=== PATIENT | female | born 1955 | race Caucasian/White ===

== ENCOUNTER 2020-03-11 11:07 | Inpatient (IN) | payer OTHER ==
[~2020-03-11] VITALS: Ht 154.9 cm; Wt 55.8 kg
[2020-03-11 16:00] VITALS: BP 117/57
[2020-03-11] MEDS ORDERED: ACETAMINOPHEN 325 MG TABLET PO PRN (17:00)
[2020-03-11] MEDS ORDERED: NICOTINE 14 MG/24 HOUR PATCH TD ONE (18:00)
[2020-03-11] MEDS: ATORVASTATIN CALCIUM 40 MG TABLET PO SCH (20:51)
[2020-03-11] MEDS: MELATONIN 3 MG TABLET PO PRN (20:52)
[2020-03-11] MEDS: DOCUSATE SODIUM 100 MG CAPSULE PO SCH (20:52)
[2020-03-11] MEDS: SENNA 187 MG TABLET PO SCH (20:52)
[2020-03-11] MEDS ORDERED: INFLUENZA VIRUS VACCINE QVS 2020-21 (6MO+)/PF 60 MCG/0.5 ML SYRINGE IM ONE (21:15)
[2020-03-11] MEDS ORDERED: PNEUMOCOCCAL VACCINE POLYVALENT 0.5 ML VIAL [PPSV23] IM ONE (21:15)
[2020-03-12 00:36] VITALS: BP 106/63
[2020-03-12 06:36] LABS: BASOPHILS % (AUTO) 0.4 % (0.0-2.0); EOSINOPHILS % (AUTO) 0.1 % (1.0-6.0); HEMATOCRIT 33.4 % (36-46); HEMOGLOBIN 11.3 g/dL (12.0-16.0); LYMPHOCYTES # (AUTO) 2.7 K/uL (1.0-4.8); LYMPHOCYTES % (AUTO) 25.6 % (22.0-44.0); MEAN CORPUSCULAR HEMOGLOBIN 30.6 pg (26.0-34.0); MEAN CORPUSCULAR HGB CONC 33.9 G/dL (31.0-37.0); MEAN CORPUSCULAR VOLUME 90 fL (80-100); MONOCYTES # (AUTO) 0.9 K/uL (0.1-1.0); MONOCYTES % (AUTO) 8.7 % (2.0-9.0); NEUTROPHILS # (AUTO) 6.8 K/uL (1.8-7.7); NEUTROPHILS % (AUTO) 65.2 % (40.0-70.0); PLATELET COUNT (AUTO) 452 K/uL (150-450); RED BLOOD CELL COUNT(AUTO) 3.69 MIL/uL (4.00-5.20); RED CELL DISTRIBUTION WIDTH 13.4 % (11.5-14.5)
[2020-03-12 06:52] LABS: ALANINE AMINOTRANSFERASE 35 U/L (12-78); ALBUMIN 2.6 g/dL (3.4-5.0); ALKALINE PHOSPHATASE 76 U/L (46-116); ANION GAP 9 mmol/L (8-16); ASPARTATE AMINOTRANSFERASE 28 U/L (15-37); BILIRUBIN,TOTAL 0.3 mg/dL (0.1-1.0); CALCIUM, TOTAL 8.8 mg/dL (8.8-10.5); CARBON DIOXIDE 26 mmol/L (22-29); CHLORIDE 106 mmol/L (98-107); CREATININE 0.62 mg/dL (0.60-1.30); GLOMERULAR FILTR. RATE CALC > 60 mL/min (>60); GLUCOSE,RANDOM 128 mg/dL (70-110); POTASSIUM 3.9 mmol/L (3.5-5.1); SODIUM SERUM 141 mmol/L (136-145); TOTAL PROTEIN, SERUM 6.6 g/dL (6.4-8.2); UREA NITROGEN, BLOOD 17 mg/dL (7-18)
[2020-03-12 08:00] VITALS: BP 125/65
[2020-03-12] MEDS: CLOPIDOGREL BISULFATE 75 MG TABLET PO SCH (08:06)
[2020-03-12] MEDS: DOCUSATE SODIUM 100 MG CAPSULE PO SCH ×2 (08:06→20:51)
[2020-03-12] MEDS: NICOTINE 14 MG/24 HOUR PATCH TD SCH (08:06)
[2020-03-12] MEDS: ASPIRIN 325 MG EC TABLET PO SCH (08:06)
[2020-03-12] MEDS: ENOXAPARIN SODIUM 40 MG/0.4 ML PF SYRINGE SQ SCH (08:07)
[2020-03-12 17:08] VITALS: BP 113/64
[2020-03-12] MEDS: SENNA 187 MG TABLET PO SCH (20:51)
[2020-03-12] MEDS: MELATONIN 3 MG TABLET PO PRN (20:51)
[2020-03-12] MEDS: ATORVASTATIN CALCIUM 40 MG TABLET PO SCH (20:51)
[2020-03-13 01:22] VITALS: BP 119/63
[2020-03-13 10:00] VITALS: BP 105/52
[2020-03-13] MEDS: ENOXAPARIN SODIUM 40 MG/0.4 ML PF SYRINGE SQ SCH (10:10)
[2020-03-13] MEDS: NICOTINE 14 MG/24 HOUR PATCH TD SCH (10:11)
[2020-03-13] MEDS: DOCUSATE SODIUM 100 MG CAPSULE PO SCH ×2 (10:11→20:42)
[2020-03-13] MEDS: ASPIRIN 325 MG EC TABLET PO SCH (10:11)
[2020-03-13] MEDS: CLOPIDOGREL BISULFATE 75 MG TABLET PO SCH (10:11)
[2020-03-13] MEDS: FLUoxetine HCL 10 MG CAPSULE PO SCH (13:12)
[2020-03-13 16:00] VITALS: BP 122/55
[2020-03-13] MEDS: ATORVASTATIN CALCIUM 40 MG TABLET PO SCH (20:41)
[2020-03-13] MEDS: MELATONIN 3 MG TABLET PO PRN (20:41)
[2020-03-13] MEDS: SENNA 187 MG TABLET PO SCH (20:42)
[2020-03-14 01:01] VITALS: BP 123/57
[2020-03-14 07:00] VITALS: BP 119/54
[2020-03-14] MEDS: FLUoxetine HCL 10 MG CAPSULE PO SCH (08:12)
[2020-03-14] MEDS: ASPIRIN 325 MG EC TABLET PO SCH (08:12)
[2020-03-14] MEDS: CLOPIDOGREL BISULFATE 75 MG TABLET PO SCH (08:12)
[2020-03-14] MEDS: ENOXAPARIN SODIUM 40 MG/0.4 ML PF SYRINGE SQ SCH (08:12)
[2020-03-14] MEDS: NICOTINE 14 MG/24 HOUR PATCH TD SCH (08:13)
[2020-03-14] MEDS: DOCUSATE SODIUM 100 MG CAPSULE PO SCH ×2 (08:22→20:35)
[2020-03-14 15:00] VITALS: BP 156/92
[2020-03-14 16:40] VITALS: BP 123/64
[2020-03-14] MEDS: SENNA 187 MG TABLET PO SCH (20:35)
[2020-03-14] MEDS: ATORVASTATIN CALCIUM 40 MG TABLET PO SCH (20:35)
[2020-03-14] MEDS: MELATONIN 3 MG TABLET PO PRN (20:41)
[2020-03-15 00:59] VITALS: BP 120/61
[2020-03-15 07:50] VITALS: BP 111/58
[2020-03-15] MEDS: NICOTINE 14 MG/24 HOUR PATCH TD SCH (07:50)
[2020-03-15] MEDS: CLOPIDOGREL BISULFATE 75 MG TABLET PO SCH (07:51)
[2020-03-15] MEDS: ENOXAPARIN SODIUM 40 MG/0.4 ML PF SYRINGE SQ SCH (07:51)
[2020-03-15] MEDS: FLUoxetine HCL 10 MG CAPSULE PO SCH (07:51)
[2020-03-15] MEDS: ASPIRIN 325 MG EC TABLET PO SCH (07:51)
[2020-03-15] MEDS: DOCUSATE SODIUM 100 MG CAPSULE PO SCH ×2 (07:51→20:07)
[2020-03-15 16:22] VITALS: BP 146/77
[2020-03-15] MEDS: SENNA 187 MG TABLET PO SCH (20:07)
[2020-03-15] MEDS: MELATONIN 3 MG TABLET PO PRN (20:07)
[2020-03-15] MEDS: ATORVASTATIN CALCIUM 40 MG TABLET PO SCH (20:07)
[2020-03-16] VITALS: BP 109/42
[2020-03-16 07:40] VITALS: BP 128/64
[2020-03-16] MEDS: FLUoxetine HCL 10 MG CAPSULE PO SCH (07:47)
[2020-03-16] MEDS: CLOPIDOGREL BISULFATE 75 MG TABLET PO SCH (07:47)
[2020-03-16] MEDS: NICOTINE 14 MG/24 HOUR PATCH TD SCH (07:47)
[2020-03-16] MEDS: ASPIRIN 325 MG EC TABLET PO SCH (07:47)
[2020-03-16] MEDS: DOCUSATE SODIUM 100 MG CAPSULE PO SCH ×2 (07:48→20:21)
[2020-03-16 13:37] LABS: APPEARANCE,URINE CLEAR (CLEAR); BILIRUBIN,URINE NEGATIVE (NEGATIVE); GLUCOSE, URINE (UA) NEGATIVE (NEGATIVE); KETONES,URINE NEGATIVE (NEGATIVE); LEUKOCYTE ESTERASE ,URINE NEGATIVE (NEGATIVE); NITRATE,URINE NEGATIVE (NEGATIVE); OCCULT BLOOD,URINE NEGATIVE (NEGATIVE); PH,URINE 5.5 (5.0-8.0); PROTEIN,URINE NEGATIVE (NEGATIVE); UROBILINOGEN,URINE 0.2 mg/dL (<=1.0)
[2020-03-16] MEDS ORDERED: Ardosons PO (13:37)
[2020-03-16] MEDS: GABAPENTIN 100 MG CAPSULE PO SCH ×2 (15:51→20:21)
[2020-03-16 16:41] VITALS: BP 128/78
[2020-03-16] MEDS: ATORVASTATIN CALCIUM 40 MG TABLET PO SCH (20:20)
[2020-03-16] MEDS: SENNA 187 MG TABLET PO SCH (20:21)
[2020-03-16] MEDS: MELATONIN 3 MG TABLET PO PRN (20:21)
[2020-03-16] MEDS ORDERED: TAMSULOSIN HCL 0.4 MG CAPSULE PO SCH (21:00)
[2020-03-17 03:00] VITALS: BP 131/54
[2020-03-17] MEDS: DOCUSATE SODIUM 283 MG/5 ML MINI-ENEMA PR PRN (04:59)
[2020-03-17 07:14] LABS: BASOPHILS % (AUTO) 0.7 % (0.0-2.0); EOSINOPHILS % (AUTO) 0.3 % (1.0-6.0); HEMATOCRIT 30.4 % (36-46); HEMOGLOBIN 10.2 g/dL (12.0-16.0); LYMPHOCYTES # (AUTO) 2.5 K/uL (1.0-4.8); LYMPHOCYTES % (AUTO) 29.2 % (22.0-44.0); MEAN CORPUSCULAR HEMOGLOBIN 30.4 pg (26.0-34.0); MEAN CORPUSCULAR HGB CONC 33.6 G/dL (31.0-37.0); MEAN CORPUSCULAR VOLUME 90 fL (80-100); MONOCYTES # (AUTO) 0.9 K/uL (0.1-1.0); MONOCYTES % (AUTO) 10.3 % (2.0-9.0); NEUTROPHILS # (AUTO) 5.1 K/uL (1.8-7.7); NEUTROPHILS % (AUTO) 59.5 % (40.0-70.0); PLATELET COUNT (AUTO) 504 K/uL (150-450); RED BLOOD CELL COUNT(AUTO) 3.36 MIL/uL (4.00-5.20); RED CELL DISTRIBUTION WIDTH 13.8 % (11.5-14.5)
[2020-03-17 07:38] LABS: ALANINE AMINOTRANSFERASE 44 U/L (12-78); ALBUMIN 2.6 g/dL (3.4-5.0); ALKALINE PHOSPHATASE 80 U/L (46-116); ANION GAP 9 mmol/L (8-16); ASPARTATE AMINOTRANSFERASE 35 U/L (15-37); BILIRUBIN,TOTAL 0.3 mg/dL (0.1-1.0); CALCIUM, TOTAL 8.8 mg/dL (8.8-10.5); CARBON DIOXIDE 27 mmol/L (22-29); CHLORIDE 106 mmol/L (98-107); CREATININE 0.49 mg/dL (0.60-1.30); GLOMERULAR FILTR. RATE CALC > 60 mL/min (>60); GLUCOSE,RANDOM 127 mg/dL (70-110); POTASSIUM 3.5 mmol/L (3.5-5.1); SODIUM SERUM 142 mmol/L (136-145); TOTAL PROTEIN, SERUM 5.9 g/dL (6.4-8.2); UREA NITROGEN, BLOOD 11 mg/dL (7-18)
[2020-03-17 07:46] VITALS: BP 114/59
[2020-03-17] MEDS: GABAPENTIN 100 MG CAPSULE PO SCH ×3 (08:17→20:45)
[2020-03-17] MEDS: FLUoxetine HCL 10 MG CAPSULE PO SCH (08:17)
[2020-03-17] MEDS: CLOPIDOGREL BISULFATE 75 MG TABLET PO SCH (08:17)
[2020-03-17] MEDS: ASPIRIN 325 MG EC TABLET PO SCH (08:18)
[2020-03-17] MEDS: NICOTINE 14 MG/24 HOUR PATCH TD SCH (08:18)
[2020-03-17] MEDS: DOCUSATE SODIUM 100 MG CAPSULE PO SCH ×2 (08:18→20:45)
[2020-03-17] MEDS: TAMSULOSIN HCL 0.4 MG CAPSULE PO SCH ×2 (11:41→20:45)
[2020-03-17] MEDS: ACETAMINOPHEN 325 MG TABLET PO SCH (11:42)
[2020-03-17 16:19] VITALS: BP 107/65
[2020-03-17] MEDS: SENNA 187 MG TABLET PO SCH (20:45)
[2020-03-17] MEDS: ATORVASTATIN CALCIUM 40 MG TABLET PO SCH (20:45)
[2020-03-17] MEDS: MELATONIN 3 MG TABLET PO PRN (23:06)
[2020-03-17 23:15] VITALS: BP 121/58
[2020-03-18] MEDS: DOCUSATE SODIUM 283 MG/5 ML MINI-ENEMA PR PRN (05:32)
[2020-03-18 08:00] VITALS: BP 110/65
[2020-03-18] MEDS: ASPIRIN 325 MG EC TABLET PO SCH (08:07)
[2020-03-18] MEDS: GABAPENTIN 100 MG CAPSULE PO SCH ×3 (08:07→20:11)
[2020-03-18] MEDS: CLOPIDOGREL BISULFATE 75 MG TABLET PO SCH (08:07)
[2020-03-18] MEDS: FLUoxetine HCL 10 MG CAPSULE PO SCH (08:07)
[2020-03-18] MEDS: ACETAMINOPHEN 325 MG TABLET PO SCH ×3 (08:07→21:09)
[2020-03-18] MEDS: TAMSULOSIN HCL 0.4 MG CAPSULE PO SCH ×2 (08:07→20:13)
[2020-03-18] MEDS: NICOTINE 14 MG/24 HOUR PATCH TD SCH (08:07)
[2020-03-18] MEDS: DOCUSATE SODIUM 100 MG CAPSULE PO SCH ×2 (08:07→20:13)
[2020-03-18 15:35] VITALS: BP 109/59
[2020-03-18] MEDS: ATORVASTATIN CALCIUM 40 MG TABLET PO SCH (20:13)
[2020-03-18] MEDS: SENNA 187 MG TABLET PO SCH (20:14)
[2020-03-18] MEDS: MELATONIN 3 MG TABLET PO PRN (21:09)
[2020-03-18] MEDS: ACETAMINOPHEN 325 MG TABLET PO PRN (23:09)
[2020-03-18 23:12] VITALS: BP 144/72
[2020-03-19] MEDS: DOCUSATE SODIUM 283 MG/5 ML MINI-ENEMA PR PRN (05:15)
[2020-03-19 07:19] VITALS: BP 116/63
[2020-03-19] MEDS: ASPIRIN 325 MG EC TABLET PO SCH (08:13)
[2020-03-19] MEDS: DOCUSATE SODIUM 100 MG CAPSULE PO SCH ×2 (08:13→20:01)
[2020-03-19] MEDS: CLOPIDOGREL BISULFATE 75 MG TABLET PO SCH (08:13)
[2020-03-19] MEDS: TAMSULOSIN HCL 0.4 MG CAPSULE PO SCH ×2 (08:13→20:02)
[2020-03-19] MEDS: ACETAMINOPHEN 325 MG TABLET PO SCH ×2 (08:14→12:00)
[2020-03-19] MEDS: FLUoxetine HCL 10 MG CAPSULE PO SCH (08:14)
[2020-03-19] MEDS: GABAPENTIN 100 MG CAPSULE PO SCH ×3 (08:14→20:02)
[2020-03-19] MEDS: NICOTINE 14 MG/24 HOUR PATCH TD SCH (08:15)
[2020-03-19 15:39] VITALS: BP 103/53
[2020-03-19] MEDS: ACETAMINOPHEN 325 MG TABLET PO PRN (20:02)
[2020-03-19] MEDS: SENNA 187 MG TABLET PO SCH (20:02)
[2020-03-19] MEDS: ATORVASTATIN CALCIUM 40 MG TABLET PO SCH (20:02)
[2020-03-19] MEDS: MELATONIN 3 MG TABLET PO PRN (20:02)
[2020-03-19 23:15] VITALS: BP 115/67
[2020-03-20 08:00] VITALS: BP 135/71
[2020-03-20] MEDS: DOCUSATE SODIUM 100 MG CAPSULE PO SCH ×2 (08:19→20:19)
[2020-03-20] MEDS: FLUoxetine HCL 10 MG CAPSULE PO SCH (08:19)
[2020-03-20] MEDS: GABAPENTIN 100 MG CAPSULE PO SCH ×3 (08:19→20:19)
[2020-03-20] MEDS: ASPIRIN 325 MG EC TABLET PO SCH (08:19)
[2020-03-20] MEDS: TAMSULOSIN HCL 0.4 MG CAPSULE PO SCH ×2 (08:19→20:18)
[2020-03-20] MEDS: CLOPIDOGREL BISULFATE 75 MG TABLET PO SCH (08:19)
[2020-03-20] MEDS: NICOTINE 14 MG/24 HOUR PATCH TD SCH (08:20)
[2020-03-20] MEDS: ACETAMINOPHEN 325 MG TABLET PO SCH ×2 (08:20→11:41)
[2020-03-20 16:16] VITALS: BP 105/60
[2020-03-20] MEDS: MELATONIN 3 MG TABLET PO PRN (20:18)
[2020-03-20] MEDS: SENNA 187 MG TABLET PO SCH (20:19)
[2020-03-20] MEDS: ATORVASTATIN CALCIUM 40 MG TABLET PO SCH (20:19)
[2020-03-20 23:30] VITALS: BP 147/58
[2020-03-21] MEDS: ACETAMINOPHEN 325 MG TABLET PO PRN (03:47)
[2020-03-21 07:15] VITALS: BP 110/60
[2020-03-21] MEDS: ASPIRIN 325 MG EC TABLET PO SCH (08:30)
[2020-03-21] MEDS: FLUoxetine HCL 10 MG CAPSULE PO SCH (08:30)
[2020-03-21] MEDS: TAMSULOSIN HCL 0.4 MG CAPSULE PO SCH ×2 (08:30→20:32)
[2020-03-21] MEDS: ACETAMINOPHEN 325 MG TABLET PO SCH ×2 (08:30→13:01)
[2020-03-21] MEDS: CLOPIDOGREL BISULFATE 75 MG TABLET PO SCH (08:30)
[2020-03-21] MEDS: GABAPENTIN 100 MG CAPSULE PO SCH ×3 (08:30→20:32)
[2020-03-21] MEDS: DOCUSATE SODIUM 100 MG CAPSULE PO SCH ×2 (08:30→20:32)
[2020-03-21] MEDS: NICOTINE 14 MG/24 HOUR PATCH TD SCH (08:31)
[2020-03-21 15:40] VITALS: BP 103/50
[2020-03-21] MEDS: SENNA 187 MG TABLET PO SCH (20:32)
[2020-03-21] MEDS: ATORVASTATIN CALCIUM 40 MG TABLET PO SCH (20:33)
[2020-03-21] MEDS: MELATONIN 3 MG TABLET PO PRN (20:33)
[2020-03-21 23:30] VITALS: BP 128/59
[2020-03-22] MEDS: ACETAMINOPHEN 325 MG TABLET PO PRN (00:45)
[2020-03-22] MEDS ORDERED: PROZ10 PO (04:31)
[2020-03-22] MEDS ORDERED: NICO-703 TD (04:31)
[2020-03-22] MEDS ORDERED: GABA-1216 PO (04:31)
[2020-03-22] MEDS ORDERED: ATOR40TA28 PO (04:31)
[2020-03-22] MEDS ORDERED: CLOP-31 PO (04:31)
[2020-03-22] MEDS ORDERED: DOCU-275 PO (04:31)
[2020-03-22] MEDS ORDERED: TAMS-13 PO (04:31)
[2020-03-22] MEDS ORDERED: ASPI-1146 PO (04:31)
[2020-03-22] MEDS ORDERED: ACET-2865 PO (04:31)
[2020-03-22] MEDS: NICOTINE 14 MG/24 HOUR PATCH TD SCH (07:59)
[2020-03-22] MEDS: GABAPENTIN 100 MG CAPSULE PO SCH ×3 (08:00→20:43)
[2020-03-22] MEDS: TAMSULOSIN HCL 0.4 MG CAPSULE PO SCH ×2 (08:00→20:43)
[2020-03-22] MEDS: DOCUSATE SODIUM 100 MG CAPSULE PO SCH ×2 (08:00→20:42)
[2020-03-22] MEDS: ACETAMINOPHEN 325 MG TABLET PO SCH ×2 (08:00→12:24)
[2020-03-22] MEDS: CLOPIDOGREL BISULFATE 75 MG TABLET PO SCH (08:00)
[2020-03-22] MEDS: FLUoxetine HCL 10 MG CAPSULE PO SCH (08:00)
[2020-03-22] MEDS: ASPIRIN 325 MG EC TABLET PO SCH (08:00)
[2020-03-22 09:10] VITALS: BP 117/57
[2020-03-22 17:03] VITALS: BP 114/63
[2020-03-22] MEDS: SENNA 187 MG TABLET PO SCH (20:42)
[2020-03-22] MEDS: ATORVASTATIN CALCIUM 40 MG TABLET PO SCH (20:43)
[2020-03-22] MEDS: MELATONIN 3 MG TABLET PO PRN (20:43)
[2020-03-22 23:27] VITALS: BP 113/72
[2020-03-23 08:20] VITALS: BP 115/73
[2020-03-23] MEDS: ASPIRIN 325 MG EC TABLET PO SCH (08:29)
[2020-03-23] MEDS: TAMSULOSIN HCL 0.4 MG CAPSULE PO SCH ×2 (08:29→20:07)
[2020-03-23] MEDS: FLUoxetine HCL 10 MG CAPSULE PO SCH (08:30)
[2020-03-23] MEDS: CLOPIDOGREL BISULFATE 75 MG TABLET PO SCH (08:30)
[2020-03-23] MEDS: ACETAMINOPHEN 325 MG TABLET PO SCH ×2 (08:30→12:17)
[2020-03-23] MEDS: GABAPENTIN 100 MG CAPSULE PO SCH ×3 (08:30→20:07)
[2020-03-23] MEDS: DOCUSATE SODIUM 100 MG CAPSULE PO SCH ×2 (08:30→20:07)
[2020-03-23] MEDS: NICOTINE 14 MG/24 HOUR PATCH TD SCH (08:30)
[2020-03-23 08:44] LABS: BASOPHILS % (AUTO) 0.7 % (0.0-2.0); EOSINOPHILS % (AUTO) 0.5 % (1.0-6.0); HEMATOCRIT 33.1 % (36-46); HEMOGLOBIN 11.2 g/dL (12.0-16.0); LYMPHOCYTES # (AUTO) 2.6 K/uL (1.0-4.8); MEAN CORPUSCULAR HEMOGLOBIN 30.9 pg (26.0-34.0); MEAN CORPUSCULAR HGB CONC 33.9 G/dL (31.0-37.0); MEAN CORPUSCULAR VOLUME 91 fL (80-100); MONOCYTES % (AUTO) 9.6 % (2.0-9.0); NEUTROPHILS # (AUTO) 6.4 K/uL (1.8-7.7); NEUTROPHILS % (AUTO) 63.2 % (40.0-70.0); PLATELET COUNT (AUTO) 396 K/uL (150-450); RED BLOOD CELL COUNT(AUTO) 3.63 MIL/uL (4.00-5.20); RED CELL DISTRIBUTION WIDTH 14.2 % (11.5-14.5)
[2020-03-23 08:54] LABS: ANION GAP 9 mmol/L (8-16); CALCIUM, TOTAL 10.5 mg/dL (8.8-10.5); CARBON DIOXIDE 29 mmol/L (22-29); CHLORIDE 102 mmol/L (98-107); CREATININE 0.58 mg/dL (0.60-1.30); GLOMERULAR FILTR. RATE CALC > 60 mL/min (>60); GLUCOSE,RANDOM 164 mg/dL (70-110); POTASSIUM 3.2 mmol/L (3.5-5.1); SODIUM SERUM 140 mmol/L (136-145); UREA NITROGEN, BLOOD 12 mg/dL (7-18)
[2020-03-23] MEDS ORDERED: POTASSIUM CHLORIDE 20 MEQ ER TABLET PO ONE (10:45)
[2020-03-23 15:48] VITALS: BP 102/57
[2020-03-23] MEDS: SENNA 187 MG TABLET PO SCH (20:07)
[2020-03-23] MEDS: ATORVASTATIN CALCIUM 40 MG TABLET PO SCH (20:07)
[2020-03-23] MEDS: MELATONIN 3 MG TABLET PO PRN (20:08)
[2020-03-24 00:25] VITALS: BP 126/70
[2020-03-24 01:25] VITALS: BP 126/70
[2020-03-24] MEDS: ACETAMINOPHEN 325 MG TABLET PO PRN (01:25)
[2020-03-24 07:10] VITALS: BP 112/58
[2020-03-24] MEDS: ASPIRIN 325 MG EC TABLET PO SCH (09:21)
[2020-03-24] MEDS: ACETAMINOPHEN 325 MG TABLET PO SCH ×2 (09:22→12:13)
[2020-03-24] MEDS: TAMSULOSIN HCL 0.4 MG CAPSULE PO SCH ×2 (09:30→20:22)
[2020-03-24] MEDS: DOCUSATE SODIUM 100 MG CAPSULE PO SCH ×2 (09:30→20:23)
[2020-03-24] MEDS: GABAPENTIN 100 MG CAPSULE PO SCH ×3 (09:30→20:22)
[2020-03-24] MEDS: CLOPIDOGREL BISULFATE 75 MG TABLET PO SCH (09:30)
[2020-03-24] MEDS: FLUoxetine HCL 10 MG CAPSULE PO SCH (09:31)
[2020-03-24] MEDS: NICOTINE 14 MG/24 HOUR PATCH TD SCH (09:31)
[2020-03-24 12:18] LABS: APPEARANCE,URINE TURBID (CLEAR); BILIRUBIN,URINE NEGATIVE (NEGATIVE); GLUCOSE, URINE (UA) NEGATIVE (NEGATIVE); KETONES,URINE NEGATIVE (NEGATIVE); LEUKOCYTE ESTERASE ,URINE LARGE (NEGATIVE); NITRATE,URINE NEGATIVE (NEGATIVE); OCCULT BLOOD,URINE MODERATE (NEGATIVE); PROTEIN,URINE POS 1+ (NEGATIVE); UROBILINOGEN,URINE 0.2 mg/dL (<=1.0)
[2020-03-24 13:00] LABS: BACTERIA,URINE Many /HPF (None Seen); WBC,URINE >100 /HPF (0-5)
[2020-03-24 17:26] VITALS: BP 103/62
[2020-03-24] MEDS: NITROFURANTOIN/NITROFURAN MAC 100 MG CAPSULE [MACROBID] PO SCH (20:22)
[2020-03-24] MEDS: SENNA 187 MG TABLET PO SCH (20:22)
[2020-03-24] MEDS: MELATONIN 3 MG TABLET PO PRN (20:23)
[2020-03-24] MEDS: ATORVASTATIN CALCIUM 40 MG TABLET PO SCH (20:23)
[2020-03-25] VITALS: BP 145/72
[2020-03-25 07:16] LABS: URIC ACID 4.1 mg/dL (2.6-7.2)
[2020-03-25 07:27] LABS: C-REACTIVE PROTEIN QUANT 0.85 mg/dL (0.00-0.30)
[2020-03-25 08:00] VITALS: BP 126/74
[2020-03-25] MEDS: CLOPIDOGREL BISULFATE 75 MG TABLET PO SCH (08:04)
[2020-03-25] MEDS: ACETAMINOPHEN 325 MG TABLET PO SCH ×2 (08:04→13:13)
[2020-03-25] MEDS: NITROFURANTOIN/NITROFURAN MAC 100 MG CAPSULE [MACROBID] PO SCH ×2 (08:04→20:39)
[2020-03-25] MEDS: DOCUSATE SODIUM 100 MG CAPSULE PO SCH ×2 (08:04→20:39)
[2020-03-25] MEDS: FLUoxetine HCL 10 MG CAPSULE PO SCH (08:05)
[2020-03-25] MEDS: TAMSULOSIN HCL 0.4 MG CAPSULE PO SCH ×2 (08:05→20:39)
[2020-03-25] MEDS: GABAPENTIN 100 MG CAPSULE PO SCH ×3 (08:05→20:39)
[2020-03-25] MEDS: ASPIRIN 325 MG EC TABLET PO SCH (08:06)
[2020-03-25] MEDS: NICOTINE 14 MG/24 HOUR PATCH TD SCH (08:09)
[2020-03-25 15:51] VITALS: BP 119/56
[2020-03-25] MEDS: ACETAMINOPHEN 325 MG TABLET PO PRN (20:38)
[2020-03-25] MEDS: SENNA 187 MG TABLET PO SCH (20:39)
[2020-03-25] MEDS: MELATONIN 3 MG TABLET PO PRN (20:39)
[2020-03-25] MEDS: ATORVASTATIN CALCIUM 40 MG TABLET PO SCH (20:39)
[2020-03-25 20:45] VITALS: BP 128/73
[2020-03-26 00:38] VITALS: BP 125/80
[2020-03-26] MEDS: ACETAMINOPHEN 325 MG TABLET PO PRN (00:38)
[2020-03-26 07:30] VITALS: BP 125/62
[2020-03-26] MEDS: ASPIRIN 325 MG EC TABLET PO SCH (07:52)
[2020-03-26] MEDS: ACETAMINOPHEN 325 MG TABLET PO SCH ×2 (07:52→12:17)
[2020-03-26] MEDS: CLOPIDOGREL BISULFATE 75 MG TABLET PO SCH (07:52)
[2020-03-26] MEDS: NICOTINE 14 MG/24 HOUR PATCH TD SCH (07:52)
[2020-03-26] MEDS: GABAPENTIN 100 MG CAPSULE PO SCH ×3 (07:52→20:44)
[2020-03-26] MEDS: TAMSULOSIN HCL 0.4 MG CAPSULE PO SCH ×2 (07:52→20:44)
[2020-03-26] MEDS: NITROFURANTOIN/NITROFURAN MAC 100 MG CAPSULE [MACROBID] PO SCH (07:52)
[2020-03-26] MEDS: DOCUSATE SODIUM 100 MG CAPSULE PO SCH ×2 (07:52→20:44)
[2020-03-26] MEDS: FLUoxetine HCL 10 MG CAPSULE PO SCH (07:52)
[2020-03-26] MEDS: SULFAMETHOX/TRIMETH DS 800-160 MG/TABLET PO SCH ×2 (12:17→20:44)
[2020-03-26 15:29] VITALS: BP 113/70
[2020-03-26] MEDS: MELATONIN 3 MG TABLET PO PRN (20:44)
[2020-03-26] MEDS: SENNA 187 MG TABLET PO SCH (20:44)
[2020-03-26] MEDS: ATORVASTATIN CALCIUM 40 MG TABLET PO SCH (20:44)
[2020-03-26 23:00] VITALS: BP 102/57
[2020-03-27 07:25] VITALS: BP 107/64
[2020-03-27] MEDS: CLOPIDOGREL BISULFATE 75 MG TABLET PO SCH (08:54)
[2020-03-27] MEDS: GABAPENTIN 100 MG CAPSULE PO SCH ×3 (08:54→20:34)
[2020-03-27] MEDS: TAMSULOSIN HCL 0.4 MG CAPSULE PO SCH ×2 (08:54→20:34)
[2020-03-27] MEDS: ASPIRIN 325 MG EC TABLET PO SCH (08:54)
[2020-03-27] MEDS: SULFAMETHOX/TRIMETH DS 800-160 MG/TABLET PO SCH ×2 (08:54→20:34)
[2020-03-27] MEDS: DOCUSATE SODIUM 100 MG CAPSULE PO SCH ×2 (08:55→20:34)
[2020-03-27] MEDS: FLUoxetine HCL 10 MG CAPSULE PO SCH (08:55)
[2020-03-27] MEDS: ACETAMINOPHEN 325 MG TABLET PO SCH ×2 (08:55→12:30)
[2020-03-27] MEDS: NICOTINE 14 MG/24 HOUR PATCH TD SCH (08:56)
[2020-03-27 16:23] VITALS: BP 103/57
[2020-03-27] MEDS: SENNA 187 MG TABLET PO SCH (20:33)
[2020-03-27] MEDS: MELATONIN 3 MG TABLET PO PRN (20:34)
[2020-03-27] MEDS: ATORVASTATIN CALCIUM 40 MG TABLET PO SCH (20:34)
[2020-03-27] MEDS: ACETAMINOPHEN 325 MG TABLET PO PRN (20:37)
[2020-03-27 23:08] VITALS: BP 118/63
[2020-03-28 07:54] VITALS: BP 114/58
[2020-03-28] MEDS: NICOTINE 14 MG/24 HOUR PATCH TD SCH (08:52)
[2020-03-28] MEDS: SULFAMETHOX/TRIMETH DS 800-160 MG/TABLET PO SCH ×2 (08:52→21:32)
[2020-03-28] MEDS: GABAPENTIN 100 MG CAPSULE PO SCH ×3 (08:52→21:32)
[2020-03-28] MEDS: ASPIRIN 325 MG EC TABLET PO SCH (08:52)
[2020-03-28] MEDS: TAMSULOSIN HCL 0.4 MG CAPSULE PO SCH ×2 (08:53→21:32)
[2020-03-28] MEDS: CLOPIDOGREL BISULFATE 75 MG TABLET PO SCH (08:53)
[2020-03-28] MEDS: DOCUSATE SODIUM 100 MG CAPSULE PO SCH ×2 (08:53→21:32)
[2020-03-28] MEDS: ACETAMINOPHEN 325 MG TABLET PO SCH ×2 (08:53→12:22)
[2020-03-28] MEDS: FLUoxetine HCL 10 MG CAPSULE PO SCH (08:53)
[2020-03-28 15:20] VITALS: BP 96/53
[2020-03-28] MEDS: ATORVASTATIN CALCIUM 40 MG TABLET PO SCH (21:31)
[2020-03-28] MEDS: SENNA 187 MG TABLET PO SCH (21:32)
[2020-03-28] MEDS: MELATONIN 3 MG TABLET PO PRN (21:32)
[2020-03-29 02:30] VITALS: BP 110/57
[2020-03-29] MEDS: DOCUSATE SODIUM 283 MG/5 ML MINI-ENEMA PR PRN (05:00)
[2020-03-29 08:00] VITALS: BP 98/57
[2020-03-29] MEDS: TAMSULOSIN HCL 0.4 MG CAPSULE PO SCH ×2 (08:47→20:40)
[2020-03-29] MEDS: GABAPENTIN 100 MG CAPSULE PO SCH ×3 (08:47→20:40)
[2020-03-29] MEDS: ACETAMINOPHEN 325 MG TABLET PO SCH ×2 (08:47→12:07)
[2020-03-29] MEDS: FLUoxetine HCL 10 MG CAPSULE PO SCH (08:47)
[2020-03-29] MEDS: SULFAMETHOX/TRIMETH DS 800-160 MG/TABLET PO SCH ×2 (08:47→20:40)
[2020-03-29] MEDS: DOCUSATE SODIUM 100 MG CAPSULE PO SCH ×2 (08:47→20:40)
[2020-03-29] MEDS: CLOPIDOGREL BISULFATE 75 MG TABLET PO SCH (08:47)
[2020-03-29] MEDS: NICOTINE 14 MG/24 HOUR PATCH TD SCH (08:48)
[2020-03-29] MEDS: ASPIRIN 325 MG EC TABLET PO SCH (08:56)
[2020-03-29 15:07] VITALS: BP 101/63
[2020-03-29] MEDS: SENNA 187 MG TABLET PO SCH (20:40)
[2020-03-29] MEDS: ATORVASTATIN CALCIUM 40 MG TABLET PO SCH (20:40)
[2020-03-29 21:12] VITALS: BP 132/73
[2020-03-30] MEDS: ACETAMINOPHEN 325 MG TABLET PO PRN ×2 (04:44→21:34)
[2020-03-30 07:00] LABS: CALCIUM, TOTAL 10.1 mg/dL (8.8-10.5); CREATININE 0.95 mg/dL (0.60-1.30); POTASSIUM 3.8 mmol/L (3.5-5.1)
[2020-03-30 09:20] VITALS: BP 124/62
[2020-03-30] MEDS: ASPIRIN 325 MG EC TABLET PO SCH (09:23)
[2020-03-30] MEDS: TAMSULOSIN HCL 0.4 MG CAPSULE PO SCH ×2 (09:24→20:25)
[2020-03-30] MEDS: SULFAMETHOX/TRIMETH DS 800-160 MG/TABLET PO SCH ×2 (09:24→20:25)
[2020-03-30] MEDS: FLUoxetine HCL 10 MG CAPSULE PO SCH (09:24)
[2020-03-30] MEDS: ACETAMINOPHEN 325 MG TABLET PO SCH ×2 (09:24→14:24)
[2020-03-30] MEDS: NICOTINE 14 MG/24 HOUR PATCH TD SCH (09:24)
[2020-03-30] MEDS: CLOPIDOGREL BISULFATE 75 MG TABLET PO SCH (09:24)
[2020-03-30] MEDS: DOCUSATE SODIUM 100 MG CAPSULE PO SCH ×2 (09:24→20:25)
[2020-03-30] MEDS: GABAPENTIN 100 MG CAPSULE PO SCH ×3 (09:25→20:25)
[2020-03-30 16:25] VITALS: BP 105/55
[2020-03-30] MEDS: ATORVASTATIN CALCIUM 40 MG TABLET PO SCH (20:25)
[2020-03-30] MEDS: MELATONIN 3 MG TABLET PO PRN (20:25)
[2020-03-30] MEDS: SENNA 187 MG TABLET PO SCH (20:25)
[2020-03-31 00:08] VITALS: BP 101/64
[2020-03-31 07:34] LABS: C-REACTIVE PROTEIN QUANT 0.85 mg/dL (0.00-0.30)
[2020-03-31 08:06] LABS: URIC ACID 3.6 mg/dL (2.6-7.2)
[2020-03-31 08:51] VITALS: BP 113/64
[2020-03-31] MEDS: TAMSULOSIN HCL 0.4 MG CAPSULE PO SCH (08:51)
[2020-03-31] MEDS: GABAPENTIN 100 MG CAPSULE PO SCH (08:51)
[2020-03-31] MEDS: NICOTINE 14 MG/24 HOUR PATCH TD SCH (08:51)
[2020-03-31] MEDS: ASPIRIN 325 MG EC TABLET PO SCH (08:51)
[2020-03-31] MEDS: SULFAMETHOX/TRIMETH DS 800-160 MG/TABLET PO SCH (08:51)
[2020-03-31] MEDS: DOCUSATE SODIUM 100 MG CAPSULE PO SCH (08:51)
[2020-03-31] MEDS: ACETAMINOPHEN 325 MG TABLET PO SCH ×2 (08:51→12:24)
[2020-03-31] MEDS: FLUoxetine HCL 10 MG CAPSULE PO SCH (08:51)
[2020-03-31] MEDS: CLOPIDOGREL BISULFATE 75 MG TABLET PO SCH (08:51)
== END 2020-03-31 14:05 | disposition home health service (06) | DRG 56 ==
LOC: 2WR 14:26
PROVIDERS: ADMIT Physical Medicine & Rehabilitation; ATTEND Physical Medicine & Rehabilitation
DX: I69.351 Hemiplegia and hemiparesis following cerebral infarction affecting right dominant side (principal); I63.9 Cerebral infarction, unspecified; E46 Unspecified protein-calorie malnutrition; R47.01 Aphasia; I10 Essential (primary) hypertension; R13.10 Dysphagia, unspecified; E78.5 Hyperlipidemia, unspecified; F17.200 Nicotine dependence, unspecified, uncomplicated; D64.89 Other specified anemias; R48.2 Apraxia; R26.9 Unspecified abnormalities of gait and mobility
CPT/HCPCS: 84132; 84550; 86140; 87081; 87086; 92507; 92523; 93971; 97110; 97112; 97116; 97150; 97163; 97167; 97530; 97535; 99366; J1650